=== PATIENT | female | born 1995 | race Caucasian/White ===

== ENCOUNTER 2021-01-17 01:35 | Emergency (ER) | payer SELFPAY ==
[~2021-01-17] VITALS: Ht 160 cm; Wt 96.8 kg
[2021-01-17 01:41] VITALS: TEMP 97.4
[2021-01-17 01:50] LABS: COLLECTION METHOD CLEAN CATCH
[2021-01-17 01:56] LABS: PH 6 (5-8); SQUAMOUS EPITHELIAL None Seen /hpf; URINE APPEARANCE Clear; URINE BACTERIA None Seen /hpf; URINE BILIRUBIN Negative (NEGATIVE); URINE BLOOD 3+ (NEGATIVE); URINE COLOR Colorless; URINE GLUCOSE Negative (NEGATIVE); URINE KETONE Negative (NEGATIVE); URINE LEUKOCYTE ESTERASE Negative (NEGATIVE); URINE NITRATE Negative (NEGATIVE); URINE PROTEIN(semi-quant) Negative (NEGATIVE); URINE RBC None Seen /hpf; URINE UROBILINOGEN Negative (NEGATIVE)
[2021-01-17 02:10] LABS: BASO # 0.1 (0.0-0.2); BASO % 0.6 % (0.0-2.0); EOS # 0.3 (0.0-0.7); EOS % 2.3 % (0-4.0); GRAN # 7.4 (1.4-6.5); GRAN % 63.9 % (42.2-75.2); HEMATOCRIT 38.7 % (37.0-47.0); HEMOGLOBIN 12.5 g/dl (12.5-16.0); LYMPH # 2.6 (1.2-3.4); LYMPH % 22.5 % (20.0-51.0); MEAN CELL VOLUME 86 fl (80.0-100.0); MEAN CORPUSCULAR HEMOGLOBIN 28 pg (27.0-31.0); MEAN CORPUSCULAR HGB CONC 32 g/dl (33.0-37.0); MEAN PLATELET VOLUME 10.1 fl (7.4-10.4); MONO # 1.2 (0.1-0.6); MONO % 10.4 % (1.7-9.3); PLATELET COUNT 332 K/mm3 (130-400); RED BLOOD COUNT 4.48 M/mm3 (4.10-5.30); REDCELL DISTRIBUTION WIDTH-CV 13.8 % (11.5-14.5)
[2021-01-17 02:30] VITALS: BP 132/82
[2021-01-17 03:50] VITALS: PULSE 88
[2021-01-18] MEDS ORDERED: IBU600 MG PO (09:16)
[2021-01-18] MEDS ORDERED: PERCOCET 325 MG1 TA2 PO (09:17)
== END 2021-01-17 03:50 | disposition home or self-care (01) ==
LOC: COL.ER 01:35
PROVIDERS: Family Medicine
DX: O20.0 Threatened abortion (principal); Z3A.00 Weeks of gestation of pregnancy not specified
CPT/HCPCS: J2550; J7120

== ENCOUNTER 2021-01-17 13:47 | Observation (INO) | payer SELFPAY ==
[~2021-01-17] VITALS: Ht 160 cm; Wt 94.3 kg
[2021-01-17] VITALS (10 sets, daily range): BP systolic 124–134; BP diastolic 74–91; PULSE 72–101; TEMP 97.7–98.4
--- NOTE | 2021-01-17 17:50 | NUR ---
1749-Recieved report from PACU. Patient to room via bed. Alert to person upon arrousal, very drowsy, VSS. Oxygen via NC at 2L/min. Respirations regular and shallow, saturation 98%. Patient rates pain 5/10 in abdomen. Denies nausea. Abdomen with lower abdominal dressing of 4x4s and metapore tape, C/D/I. Bandaid x2 C/D/I. Lung vera clear x4, HRR, Bowel sounds hypoactive x 4 quadrants. BLE with SCDs, +2 pedal pulses. No vaginal bleeding noted. Moeller catheter to DD, light obinna hazey urine. IVF to left hand. Significant other at bedside. 1824-Reported off to BUSTER Albarran
[2021-01-18 01:45] VITALS: BP 130/66; PULSE 100; TEMP 98.1
[2021-01-18 04:55] VITALS: BP 127/76; PULSE 84; TEMP 98.1
[2021-01-18 07:49] VITALS: BP 124/63; PULSE 93; TEMP 98.3
[2021-01-18] MEDS ORDERED: IBU600 MG PO (09:16)
[2021-01-18] MEDS ORDERED: PERCOCET 325 MG1 TA2 PO (09:17)
== END 2021-01-18 09:55 | disposition home or self-care (01) ==
LOC: SDCO 13:47 → OB 13:48 → SDCO 15:00 → EDSTATUS 15:00 → SDCO 16:33 → OB 16:33 → SDCO 01-18 09:55
PROVIDERS: ADMIT Obstetrics & Gynecology
DX: O00.102 Left tubal pregnancy without intrauterine pregnancy (principal); F17.210 Nicotine dependence, cigarettes, uncomplicated; Z20.822 Contact with and (suspected) exposure to COVID-19
CPT/HCPCS: OP; A4314; G0378; J0690; J1170; J1885; J2405; J2550; J2704; J2710; J3010; J7120